=== PATIENT | male | born 1970 | race Caucasian/White ===

== ENCOUNTER 2018-07-15 19:24 | Emergency (ER) | payer SELFPAY ==
[2018-07-15] MEDS ORDERED: ASPI-1471 PO (19:33)
[2018-07-15] MEDS ORDERED: GLYB1TAB PO (19:33)
[2018-07-15] MEDS ORDERED: SIMV-54 PO (19:33)
[2018-07-15] MEDS ORDERED: LISI5TAB25 PO (19:33)
--- NOTE | 2018-07-15 19:36 | ER Report ---
History and Physical Time Seen By MD: 19:32 Hx. of Stated Complaint: COUGH AND SOB X1 WEEK HPI/ROS CHIEF COMPLAINT: Cough HISTORY OF PRESENT ILLNESS: This is a 47-year-old male presents to the emergency department for cough. Patient is an over the road steward/stewardess second class, states he's been ill with upper respiratory type infection for roughly 1 week with a nonproductive cough, sore throat, chest congestion. Intermittent aches, no chills, no nodes Dr. Taylor fevers. No nausea or vomiting. No diarrhea. No rashes, no chest pain. Shortness breath with recurrent coughing episodes. No history of smoking, no history of asthma or COPD. REVIEW OF SYSTEMS: Constitutional: As above. Eyes: No discharge. ENT: No sore throat. Cardiovascular: No chest pain, no palpitations. Respiratory: As above. Gastrointestinal: No abdominal pain, no vomiting. Genitourinary: No hematuria. Musculoskeletal: No back pain. Skin: No rashes. Neurological: No headache. Allergies: Coded Allergies: No Known Drug Allergies (Unverified , 07/15/18) Home Meds Active Scripts Benzonatate (BENZONATATE) 200 Mg Capsule, 200 MG PO TID PRN for COUGH, #15 CAP Prov:GAGE GLASS ZIPPER SETTER CHAINSTITCH-BC 07/15/18 Prednisone (PREDNISONE) 20 Mg Tablet, 20 MG PO BID, #10 TAB Prov:GAGE GLASS ZIPPER SETTER CHAINSTITCH-BC 07/15/18 Reported Medications Aspirin (ASPIR 81) 81 Mg Tablet.dr, 81 MG PO QDAY, TAB 07/15/18 Glyburide/Metformin Hcl (GLYBURID-METFORMIN 1.25-250 MG) 1 Each Tablet, 1 EACH PO 07/15/18 Simvastatin (SIMVASTATIN) 40 Mg Tablet, 40 MG PO HS, TAB 07/15/18 Lisinopril (LISINOPRIL) 5 Mg Tablet, 2.5 MG PO QDAY, TAB 07/15/18 Past Medical/Surgical History Patient has a past medical and surgical history of 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 Reviewed Nurses Notes: Yes Hx Substance Use Disorder: No Hx Alcohol Use: No Constitutional Vital Sign - Last 24 Hours 07/15/18 07/15/18 07/15/18 07/15/18 19:24 19:28 19:28 19:39 Temp 98.8 Pulse ??? 92 88 Resp 20 B/P (MAP) 118/98 118/98 (105) Pulse Ox 91 90 O2 Delivery Room Air 07/15/18 07/15/18 07/15/18 07/15/18 19:54 20:01 20:09 20:24 Pulse 88 93 95 Resp 15 24 21 B/P (MAP) 143/96 (112) Pulse Ox 95 93 94 07/15/18 07/15/18 20:30 20:39 Pulse 98 Resp 21 B/P (MAP) 138/96 (110) Pulse Ox 94 Physical Exam General Appearance: The patient is alert, has no immediate need for airway protection and no signs of toxicity. Eyes: Pupils equal and round no pallor or injection. ENT, Mouth: Mucous membranes are dry. Respiratory: There are no retractions, lungs are diminished throughout, very faint right upper field expiratory wheeze Cardiovascular: Regular rate and rhythm, no murmurs, clicks or rubs. Gastrointestinal: Abdomen is soft and non tender, no masses, bowel sounds normal. Neurological: Alert and oriented 4. Moving all extremities. Following all commands. No focal neuro deficits. Skin: Warm and dry, no rashes. Musculoskeletal: Neck is supple non tender. Extremities are nontender, nonswollen and have full range of motion. DIFFERENTIAL DIAGNOSIS: After history and physical exam differential diagnosis was considered for strep throat, influenza, rhonchi disc, pneumonia, upper respiratory infection, myocardial infarction, pneumothorax. Medical Decision Making Data Points Result Diagram: 07/15/18200907/15/182009 Laboratory Hematology Test 07/15/18 19:30 07/15/18 20:10 Influenza Virus Type A (PCR) Negative (NEGATIVE) Influenza Virus Type B (PCR) Negative (NEGATIVE) Group A Streptococcus (PCR) Negative (NEGATIVE) Red Blood Count 5.30 M/uL (4.00-5.60) Mean Corpuscular Volume 91.4 fL (80.0-96.0) Mean Corpuscular Hemoglobin 31.7 pg (26.0-33.0) Mean Corpuscular Hemoglobin Concent 34.7 g/dL (32.0-36.0) Red Cell Distribution Width 13.2 % (11.5-14.5) Mean Platelet Volume 8.4 fL (7.2-11.1) Neutrophils (%) (Auto) 64.2 % (39.4-72.5) Lymphocytes (%) (Auto) 26.0 % (17.6-49.6) Monocytes (%) (Auto) 8.4 % (4.1-12.4) Eosinophils (%) (Auto) 1.0 % (0.4-6.7) Basophils (%) (Auto) 0.4 % (0.3-1.4) Nucleated RBC Relative Count (auto) 0.0 /100WBC Neutrophils # (Auto) 5.6 K/uL (2.0-7.4) Lymphocytes # (Auto) 2.2 K/uL (1.3-3.6) Monocytes # (Auto) 0.7 K/uL (0.3-1.0) Eosinophils # (Auto) 0.1 K/uL (0.0-0.5) Basophils # (Auto) 0.0 K/uL (0.0-0.1) Nucleated RBC Absolute Count (auto) 0.00 K/uL Sodium Level 138 mmol/L (137-145) Potassium Level 3.7 mmol/L (3.5-5.0) Chloride Level 106 mmol/L (98-107) Carbon Dioxide Level 23 mmol/L (22-30) Blood Urea Nitrogen 6 mg/dl (9-21) Creatinine 0.90 mg/dl (0.66-1.25) Glomerular Filtration Rate Calc > 60.0 Random Glucose 175 mg/dl (75-110) Calcium Level 9.0 mg/dl (8.4-10.2) Chemistry Test 07/15/18 19:30 07/15/18 20:10 Influenza Virus Type A (PCR) Negative (NEGATIVE) Influenza Virus Type B (PCR) Negative (NEGATIVE) Group A Streptococcus (PCR) Negative (NEGATIVE) White Blood Count 8.6 k/uL (4.5-11.0) Red Blood Count 5.30 M/uL (4.00-5.60) Hemoglobin 16.8 g/dL (14.0-18.0) Hematocrit 48.5 % (42.0-52.0) Mean Corpuscular Volume 91.4 fL (80.0-96.0) Mean Corpuscular Hemoglobin 31.7 pg (26.0-33.0) Mean Corpuscular Hemoglobin Concent 34.7 g/dL (32.0-36.0) Red Cell Distribution Width 13.2 % (11.5-14.5) Platelet Count 259 K/uL (150-450) Mean Platelet Volume 8.4 fL (7.2-11.1) Neutrophils (%) (Auto) 64.2 % (39.4-72.5) Lymphocytes (%) (Auto) 26.0 % (17.6-49.6) Monocytes (%) (Auto) 8.4 % (4.1-12.4) Eosinophils (%) (Auto) 1.0 % (0.4-6.7) Basophils (%) (Auto) 0.4 % (0.3-1.4) Nucleated RBC Relative Count (auto) 0.0 /100WBC Neutrophils # (Auto) 5.6 K/uL (2.0-7.4) Lymphocytes # (Auto) 2.2 K/uL (1.3-3.6) Monocytes # (Auto) 0.7 K/uL (0.3-1.0) Eosinophils # (Auto) 0.1 K/uL (0.0-0.5) Basophils # (Auto) 0.0 K/uL (0.0-0.1) Nucleated RBC Absolute Count (auto) 0.00 K/uL Glomerular Filtration Rate Calc > 60.0 Calcium Level 9.0 mg/dl (8.4-10.2) EKG/Imaging Imaging PATIENT NAME: Niranjan Monte : 1970 MR: [id number] V: [id number] EXAM DATE: ORDERING PHYSICIAN: GAGE GLASS TECHNOLOGIST: Location: [facility] Patient: Niranjan Monte : 1970 Visit/Account:[id number] Date of Sevice: 07/15/2018 EXAMINATION: Chest radiographs 2 views HISTORY: Cough for one and a half weeks. COMPARISON: None. FINDINGS: PA and lateral views of the chest are submitted. Lines/tubes: None. Lungs/pleura: No focal consolidation or pleural effusion. Pulmonary vascularity is within normal limits. No evidence of pneumothorax. Calcified granuloma at the right lung base versus a small bone island in the overlying rib. Heart: Normal heart size. Atrial septal closure device. Mediastinum: Negative. Bony structures/body wall: Negative. IMPRESSION: No radiographic evidence of acute cardiopulmonary disease. Report Dictated By: Raymond Mckenzie MD at 07/15/2018 8:42 PM Report E-Signed By: Raymond Mckenzie MD at 07/15/2018 8:45 PM WSN:[id number] ED Course/Re-evaluation Clinical Indication for ER IV: Hydration, IV Access ED Course The patient was admitted to room. A history of physical were obtained. Differential diagnoses were considered. An IV was started. A 1 L normal saline bolus was given. A CBC, BMP were obtained. 30 mg IV Toradol, DuoNeb 2. Lab studies unremarkable, negative influenza, negative strep throat. Patient states feeling much better after the 2nd DuoNeb. Two-view chest x-ray negative for any acute cardiopulmonary process. I did review the results with the patient. I did tell patient that his symptoms are consistent with viral bronchitis, we discussed symptomatic treatment, he was given an albuterol MDI, prescription for prednisone, benzonatate and Magic mouthwash. The patient expressed understanding, we also discussed following up with his primary care provider or returning to the ER or following up in another clinic should his symptoms not improve in the next 1-2 weeks sooner if they are getting worse. Patient was in agreement with this plan care and discharged home. Decision to Disposition Date: Jul 15, 2018 Decision to Disposition Time: 21:15 Depart Departure Latest Vital Signs Vital Signs Date Time Temp Pulse Resp B/P (MAP) Pulse Ox O2 Delivery O2 Flow Rate FiO2 07/15/18 20:39 98 21 94 07/15/18 20:30 138/96 (110) 07/15/18 19:28 98.8 Room Air Impression: Primary Impression: Bronchitis Condition: Improved Disposition: HOME OR SELF-CARE New Scripts Benzonatate (BENZONATATE) 200 Mg Capsule 200 MG PO TID PRN for COUGH, #15 CAP Prov: GAGE GLASSP-BC 07/15/18 Prednisone (PREDNISONE) 20 Mg Tablet 20 MG PO BID, #10 TAB Prov: GAGE GLASS-BC 07/15/18 Patient Instructions: Acute Bronchitis (ED) Additional Instructions: Please fill the prescriptions for steroids and benzonatate. Take the prednisone starting tomorrow. Use the magic mouthwash as needed for sore throat. Use the inhaler as needed for shortness of breath and cough. Drink plenty of water. Get plenty of rest. Return to the ED for any other concerns or worsening symptoms. GAGE GLASS ZIPPER SETTER CHAINSTITCH-BC Jul 15, 2018 19:36
[2018-07-15] MEDS ORDERED: ALBUTEROL/IPRATROPIUM 3 ML NEB NEB ONE ×2 (19:45→20:50)
[2018-07-15] MEDS ORDERED: KETOROLAC 30 MG/ML VIAL IVP ONE (19:45)
[2018-07-15] MEDS ORDERED: NS(*) 0.9% 1000 ML BAG 1,000 ML IV ONE (19:45)
[2018-07-15 20:24] LABS: PLATELET COUNT, AUTOMATED 259 K/uL (150-450)
--- NOTE | 2018-07-15 20:49 | RADIOLOGY IMAGING REPORT ---
FACILITY[place] [facility] [place] PATIENT NAME: Nirnajan Monte : 1970 MR: [id number] V: [id number] EXAM DATE: ORDERING PHYSICIAN: GAGE GLASS TECHNOLOGIST: Location: [facility] Patient: Niranjan Monte : 1970 Visit/Account:[id number] Date of Sevice: 07/15/2018 EXAMINATION: Chest radiographs 2 views HISTORY: Cough for one and a half weeks. COMPARISON: None. FINDINGS: PA and lateral views of the chest are submitted. Lines/tubes: None. Lungs/pleura: No focal consolidation or pleural effusion. Pulmonary vascularity is within normal carias its. No evidence of pneumothorax. Calcified granuloma at the right lung base versus a small bone farrukh nd in the overlying rib. Heart: Normal heart size. Atrial septal closure device. Mediastinum: Negative. Bony structures/body wall: Negative. IMPRESSION: No radiographic evidence of acute cardiopulmonary disease. Report Dictated By: Raymond Mckenzie MD at 07/15/2018 8:42 PM Report E-Signed By: Raymond Mckenzie MD at 07/15/2018 8:45 PM WSN:[id number]
[2018-07-15] MEDS ORDERED: methylPREDNIS SUCC 125 MG/2ML IVP ONE (20:50)
[2018-07-15 21:00] VITALS: BP 131/88
[2018-07-15] MEDS ORDERED: BENZ200C15 PO (21:01)
[2018-07-15] MEDS ORDERED: PRED20TA6 PO (21:01)
[2018-07-15] MEDS ORDERED: ALBUTEROL 8 GM INHALER INH ONE (21:05)
== END 2018-07-15 21:33 | disposition home or self-care (01) ==
LOC: ER 19:44
DX: J40 Bronchitis, not specified as acute or chronic (principal)
CPT/HCPCS: 36415; 71046; 85025; 87502; 87653; 94640; 96361; 96374; 96375; 99284; J1885; J2930; J7030; J7620; 82310; 82374; 82435; 82565; 82947; 84132; 84295; 84520